=== PATIENT | female | born 1970 | race Caucasian/White ===

== ENCOUNTER 2019-03-26 18:46 | Emergency (ER) | payer SELFPAY ==
[~2019-03-26] VITALS: Ht 165.1 cm; Wt 91.2 kg
[2019-03-26 18:57] VITALS: Ht 165.1 cm; Wt 91.2 kg
[2019-03-26 21:42] VITALS: BP 130/75
== END 2019-03-26 21:43 | disposition home or self-care (01) ==
LOC: ED 18:46
DX: R51 Headache (principal); B69.9 Cysticercosis, unspecified; I10 Essential (primary) hypertension; Z86.73 Personal history of transient ischemic attack (TIA), and cerebral infarction without residual deficits
CPT/HCPCS: J1885; J2765